=== PATIENT | male | born 1965 | race African-American/Black ===

== ENCOUNTER 2016-09-24 13:19 | Inpatient (IN) | payer OTHER ==
[2016-09-24] MEDS ORDERED: GLUCOTROL10 M1 PO (13:37)
[2016-09-24] MEDS ORDERED: CELEXA40 M2 PO (13:37)
[2016-09-24] MEDS ORDERED: COREG25 M1 PO (13:38)
[2016-09-24] MEDS ORDERED: LASIX20 M1 PO (13:38)
[2016-09-24] MEDS ORDERED: COZAAR100 M1 PO (17:49)
[2016-09-24] MEDS ORDERED: ONGLYZA2.5 M1 PO (17:50)
[2016-09-24 18:15] LABS: BASO % 0.1 % (0-2); EOS % 0.5 % (0-7); EOSINOPHIL ABSOLUTE COUNT 0.1 tho/cmm (0.0-0.7); HCT-HEMATOCRIT 36.2 % (36.0-53.5); HGB-HEMOGLOBIN 11.7 gm/dl (13.5-17.0); IMMATURE GRANULOCYTES ABSOLUTE 0.04 tho/cmm (0-0.03); IMMATURE GRANULOCYTES PERCENT 0.4 % (0-0.3); LYMPH % 8.9 % (20-45); LYMPH ABSOLUTE COUNT 0.9 tho/cmm (0.8-4.5); MCH (MEAN CORPUSCULAR HGB) 27.9 pg (28.0-32.0); MCHC MEAN CORPUSCULAR HGB CONC 32.3 % (32.0-36.0); MCV (MEAN CELL VOLUME) 86.2 fl (82.0-96.0); MEAN PLATELET VOLUME 11.4 cmc (9.4-12.4); MONO % 8.9 % (0-12); MONOCYTE ABSOLUTE COUNT 0.9 tho/cmm (0.0-1.2); NEUTROPHIL ABSOLUTE COUNT 8.4 tho/cmm (1.6-8.0); NEUTROPHIL-AUTOMATED 8.4 tho/cmm (1.6-8.0); NEUTROPHILS % 81.2 % (40-80); PLATELET COUNT 227 tho/cmm (150-450); RED CELL DISTRIBUTION WIDTH 13.2 % (12.4-16.4); WHITE BLOOD COUNT 10.3 tho/cmm (4.0-10.0)
[2016-09-24 18:42] LABS: ESR-ERYTHROCYTE SED RATE 55 mm/hr (0-20)
[2016-09-24 18:43] LABS: ALB/GLOB RATIO 0.8 (0.8-2.0); ALBUMIN 3.6 g/dl (3.5-5.0); ALKALINE PHOSPHATASE 87 U/L (33-138); ALT/SGPT 20 U/L (12-78); BILIRUBIN,TOTAL 0.3 mg/dl (0.0-1.5); BLOOD UREA NITROGEN 29 mg/dl (6-24); C-REACTIVE PROTEIN 8.7 mg/dl (0-0.9); CALCIUM 8.1 mg/dl (8.5-10.5); CARBON DIOXIDE-VENOUS 22 mmol/L (22-32); CHLORIDE 111 mmol/l (96-110); CREATININE 2.82 mg/dl (0.60-1.30); GLUCOSE 121 mg/dL (70-110); SODIUM 137 mmol/L (135-145); eGFR VALUE FOR BLACK 29 mL/Min
[2016-09-24 18:45] LABS: ANION GAP 10 mmol/L (0-20)
[2016-09-24 18:46] LABS: AST/SGOT 17 U/L (10-40)
[2016-09-24 19:05] LABS: PROCALCITONIN 0.08 ng/ml (0.05-0.09)
[2016-09-25 06:13] LABS: BASO % 0.1 % (0-2); EOS % 0.9 % (0-7); EOSINOPHIL ABSOLUTE COUNT 0.1 tho/cmm (0.0-0.7); HCT-HEMATOCRIT 31.5 % (36.0-53.5); IMMATURE GRANULOCYTES ABSOLUTE 0.03 tho/cmm (0-0.03); IMMATURE GRANULOCYTES PERCENT 0.4 % (0-0.3); LYMPH % 12.2 % (20-45); MCH (MEAN CORPUSCULAR HGB) 27.4 pg (28.0-32.0); MCHC MEAN CORPUSCULAR HGB CONC 31.7 % (32.0-36.0); MCV (MEAN CELL VOLUME) 86.3 fl (82.0-96.0); MEAN PLATELET VOLUME 11.7 cmc (9.4-12.4); MONO % 13.5 % (0-12); MONOCYTE ABSOLUTE COUNT 1.1 tho/cmm (0.0-1.2); NEUTROPHIL ABSOLUTE COUNT 6.2 tho/cmm (1.6-8.0); NEUTROPHIL-AUTOMATED 6.2 tho/cmm (1.6-8.0); NEUTROPHILS % 72.9 % (40-80); PLATELET COUNT 198 tho/cmm (150-450); RED BLOOD COUNT 3.65 mil/cmm (4.40-5.70); RED CELL DISTRIBUTION WIDTH 13.1 % (12.4-16.4); WHITE BLOOD COUNT 8.5 tho/cmm (4.0-10.0)
[2016-09-25 06:26] LABS: ANION GAP 12 mmol/L (0-20); BLOOD UREA NITROGEN 28 mg/dl (6-24); CALCIUM 7.9 mg/dl (8.5-10.5); CARBON DIOXIDE-VENOUS 23 mmol/L (22-32); CHLORIDE 108 mmol/l (96-110); CREATININE 2.77 mg/dl (0.60-1.30); GLUCOSE 165 mg/dL (70-110); SODIUM 138 mmol/L (135-145); eGFR VALUE FOR BLACK 30 mL/Min
[2016-09-25 06:38] LABS: POTASSIUM 5.1 mmol/L (3.7-5.1)
[2016-09-25 09:23] LABS: ESR-ERYTHROCYTE SED RATE 58 mm/hr (0-20)
[2016-09-26 06:25] LABS: HGB-HEMOGLOBIN 10.2 gm/dl (13.5-17.0); IMMATURE GRANULOCYTES ABSOLUTE 0.05 tho/cmm (0-0.03); IMMATURE GRANULOCYTES PERCENT 0.4 % (0-0.3); LYMPH ABSOLUTE COUNT 0.4 tho/cmm (0.8-4.5); MCH (MEAN CORPUSCULAR HGB) 27.6 pg (28.0-32.0); MCHC MEAN CORPUSCULAR HGB CONC 31.9 % (32.0-36.0); MCV (MEAN CELL VOLUME) 86.5 fl (82.0-96.0); MONO % 7.2 % (0-12); NEUTROPHIL ABSOLUTE COUNT 11.8 tho/cmm (1.6-8.0); NEUTROPHIL-AUTOMATED 11.8 tho/cmm (1.6-8.0); NEUTROPHILS % 89.4 % (40-80); PLATELET COUNT 199 tho/cmm (150-450); RED CELL DISTRIBUTION WIDTH 12.9 % (12.4-16.4)
[2016-09-26 06:27] LABS: WHITE BLOOD COUNT 13.2 tho/cmm (4.0-10.0)
[2016-09-26 06:41] LABS: ANION GAP 11 mmol/L (0-20); BLOOD UREA NITROGEN 35 mg/dl (6-24); CALCIUM 7.6 mg/dl (8.5-10.5); CARBON DIOXIDE-VENOUS 24 mmol/L (22-32); CHLORIDE 103 mmol/l (96-110); CREATININE 2.76 mg/dl (0.60-1.30); GLUCOSE 211 mg/dL (70-110); SODIUM 132 mmol/L (135-145); eGFR VALUE FOR BLACK 30 mL/Min
[2016-09-27 05:51] LABS: BASO % 0.1 % (0-2); EOS % 0.3 % (0-7); HCT-HEMATOCRIT 30.1 % (36.0-53.5); HGB-HEMOGLOBIN 9.7 gm/dl (13.5-17.0); IMMATURE GRANULOCYTES ABSOLUTE 0.07 tho/cmm (0-0.03); IMMATURE GRANULOCYTES PERCENT 0.7 % (0-0.3); LYMPH % 9.4 % (20-45); MCH (MEAN CORPUSCULAR HGB) 27.3 pg (28.0-32.0); MCHC MEAN CORPUSCULAR HGB CONC 32.2 % (32.0-36.0); MCV (MEAN CELL VOLUME) 84.8 fl (82.0-96.0); MEAN PLATELET VOLUME 12.2 cmc (9.4-12.4); MONO % 8.6 % (0-12); MONOCYTE ABSOLUTE COUNT 0.9 tho/cmm (0.0-1.2); NEUTROPHIL ABSOLUTE COUNT 8.5 tho/cmm (1.6-8.0); NEUTROPHIL-AUTOMATED 8.5 tho/cmm (1.6-8.0); NEUTROPHILS % 80.9 % (40-80); PLATELET COUNT 208 tho/cmm (150-450); RED BLOOD COUNT 3.55 mil/cmm (4.40-5.70); RED CELL DISTRIBUTION WIDTH 12.8 % (12.4-16.4); WHITE BLOOD COUNT 10.5 tho/cmm (4.0-10.0)
[2016-09-27 06:08] LABS: ANION GAP 13 mmol/L (0-20); BLOOD UREA NITROGEN 34 mg/dl (6-24); CALCIUM 7.8 mg/dl (8.5-10.5); CARBON DIOXIDE-VENOUS 19 mmol/L (22-32); CHLORIDE 113 mmol/l (96-110); CREATININE 2.39 mg/dl (0.60-1.30); GLUCOSE 148 mg/dL (70-110); POTASSIUM 5.5 mmol/L (3.7-5.1); SODIUM 139 mmol/L (135-145); eGFR VALUE FOR BLACK 35 mL/Min
[2016-09-28 04:22] LABS: BASO % 0.4 % (0-2); EOS % 1.5 % (0-7); EOSINOPHIL ABSOLUTE COUNT 0.1 tho/cmm (0.0-0.7); HGB-HEMOGLOBIN 9.9 gm/dl (13.5-17.0); IMMATURE GRANULOCYTES ABSOLUTE 0.04 tho/cmm (0-0.03); IMMATURE GRANULOCYTES PERCENT 0.5 % (0-0.3); LYMPH % 19.9 % (20-45); LYMPH ABSOLUTE COUNT 1.6 tho/cmm (0.8-4.5); MCH (MEAN CORPUSCULAR HGB) 27.3 pg (28.0-32.0); MCHC MEAN CORPUSCULAR HGB CONC 31.9 % (32.0-36.0); MCV (MEAN CELL VOLUME) 85.4 fl (82.0-96.0); MEAN PLATELET VOLUME 11.3 cmc (9.4-12.4); MONO % 11.3 % (0-12); MONOCYTE ABSOLUTE COUNT 0.9 tho/cmm (0.0-1.2); NEUTROPHIL ABSOLUTE COUNT 5.2 tho/cmm (1.6-8.0); NEUTROPHIL-AUTOMATED 5.2 tho/cmm (1.6-8.0); NEUTROPHILS % 66.4 % (40-80); PLATELET COUNT 235 tho/cmm (150-450); RED BLOOD COUNT 3.63 mil/cmm (4.40-5.70); RED CELL DISTRIBUTION WIDTH 12.8 % (12.4-16.4); WHITE BLOOD COUNT 7.9 tho/cmm (4.0-10.0)
[2016-09-28 04:40] LABS: ANION GAP 10 mmol/L (0-20); BLOOD UREA NITROGEN 31 mg/dl (6-24); CALCIUM 7.7 mg/dl (8.5-10.5); CARBON DIOXIDE-VENOUS 22 mmol/L (22-32); CHLORIDE 112 mmol/l (96-110); CREATININE 2.26 mg/dl (0.60-1.30); GLUCOSE 175 mg/dL (70-110); SODIUM 139 mmol/L (135-145); eGFR VALUE FOR BLACK 38 mL/Min
[2016-09-28] MEDS ORDERED: NORVASC5 M2 PO (09:42)
[2016-09-28] MEDS ORDERED: VIBRAMYCIN100 M1 PO (09:43)
[2016-09-28] MEDS ORDERED: NORCO 5-325 TA1 EACH PO (09:43)
[2017-02-19] MEDS ORDERED: GLUCOSE4 GM PO (14:50)
[2017-02-19] MEDS ORDERED: COLCRYS0.6 M1 PO (14:50)
[2017-02-19] MEDS ORDERED: INDOMETHACIN25 M1 PO (14:51)
[2017-02-19] MEDS ORDERED: PERCOCET 5-3251 EACH PO (15:49)
[2017-02-23] MEDS ORDERED: TRAMADOL HCL50 M2 PO (05:54)
== END 2016-09-28 10:35 | DRG 507 ==
LOC: EDMED 13:19 → EMR2 18:56 → 5EC 22:00 → PACU 09-25 12:27 → 5EC 09-25 14:00
PROVIDERS: Hospitalist; Internal Medicine; Nurse Practitioner Acute Care; Nurse Practitioner Family; Radiology Radiation Oncology; ADMIT Hospitalist
PROC: 0R9M3ZX Drainage of Left Elbow Joint, Percutaneous Approach, Diagnostic (ICD-10-PCS; 2016-09-24)
PROC: 0R9M0ZZ Drainage of Left Elbow Joint, Open Approach (ICD-10-PCS; principal; 2016-09-25)
DX: M25.422 Effusion, left elbow (principal); N18.4 Chronic kidney disease, stage 4 (severe); E11.22 Type 2 diabetes mellitus with diabetic chronic kidney disease; I12.9 Hypertensive chronic kidney disease with stage 1 through stage 4 chronic kidney disease, or unspecified chronic kidney disease; Z59.0 Homelessness; D63.1 Anemia in chronic kidney disease; Z79.84 Long term (current) use of oral hypoglycemic drugs; F17.220 Nicotine dependence, chewing tobacco, uncomplicated; Z85.9 Personal history of malignant neoplasm, unspecified; E87.5 Hyperkalemia
CPT/HCPCS: J0610; J1170; J1815; J1940; J3370; J7030

== ENCOUNTER 2016-10-28 09:31 | Emergency (ER) | payer OTHER ==
[~2016-10-28 09:31] MED LIST: CELEXA40 M2 PO; COREG25 M1 PO; COZAAR100 M1 PO; GLUCOTROL10 M1 PO; LASIX20 M1 PO; NORCO 5-325 TA1 EACH PO; NORVASC5 M2 PO; ONGLYZA2.5 M1 PO; VIBRAMYCIN100 M1 PO
[2016-10-28 10:55] LABS: BASO % 0.2 % (0-2); EOS % 1.7 % (0-7); EOSINOPHIL ABSOLUTE COUNT 0.1 tho/cmm (0.0-0.7); HCT-HEMATOCRIT 33.6 % (36.0-53.5); HGB-HEMOGLOBIN 10.7 gm/dl (13.5-17.0); IMMATURE GRANULOCYTES ABSOLUTE 0.04 tho/cmm (0-0.03); IMMATURE GRANULOCYTES PERCENT 0.5 % (0-0.3); LYMPH % 12.5 % (20-45); LYMPH ABSOLUTE COUNT 1.1 tho/cmm (0.8-4.5); MCH (MEAN CORPUSCULAR HGB) 27.6 pg (28.0-32.0); MCHC MEAN CORPUSCULAR HGB CONC 31.8 % (32.0-36.0); MCV (MEAN CELL VOLUME) 86.8 fl (82.0-96.0); MEAN PLATELET VOLUME 11.4 cmc (9.4-12.4); MONOCYTE ABSOLUTE COUNT 0.9 tho/cmm (0.0-1.2); NEUTROPHIL ABSOLUTE COUNT 6.2 tho/cmm (1.6-8.0); NEUTROPHIL-AUTOMATED 6.2 tho/cmm (1.6-8.0); NEUTROPHILS % 74.1 % (40-80); PLATELET COUNT 207 tho/cmm (150-450); RED BLOOD COUNT 3.87 mil/cmm (4.40-5.70); WHITE BLOOD COUNT 8.4 tho/cmm (4.0-10.0)
[2016-10-28 11:10] LABS: ANION GAP 11 mmol/L (0-20); BLOOD UREA NITROGEN 31 mg/dl (6-24); C-REACTIVE PROTEIN 1.4 mg/dl (0-0.9); CALCIUM 7.9 mg/dl (8.5-10.5); CARBON DIOXIDE-VENOUS 26 mmol/L (22-32); CHLORIDE 111 mmol/l (96-110); CREATININE 2.45 mg/dl (0.60-1.30); GLUCOSE 160 mg/dL (70-110); SODIUM 143 mmol/L (135-145); eGFR VALUE FOR BLACK 34 mL/Min
[2016-10-28 11:31] LABS: ESR-ERYTHROCYTE SED RATE 39 mm/hr (0-20)
[2016-10-28] MEDS ORDERED: OXYCODONE-ACET1 EAC3 PO (11:53)
[2017-02-19] MEDS ORDERED: COLCRYS0.6 M1 PO (14:50)
[2017-02-19] MEDS ORDERED: GLUCOSE4 GM PO (14:50)
[2017-02-19] MEDS ORDERED: INDOMETHACIN25 M1 PO (14:51)
[2017-02-19] MEDS ORDERED: PERCOCET 5-3251 EACH PO (15:49)
[2017-02-23] MEDS ORDERED: TRAMADOL HCL50 M2 PO (05:54)
== END 2016-10-28 12:14 ==
LOC: EDMED 09:31
PROVIDERS: Emergency Medicine
DX: M25.422 Effusion, left elbow (principal)
CPT/HCPCS: J1170; J7030